=== PATIENT | male | born 1970 | race Caucasian/White ===

== ENCOUNTER 2017-09-20 08:32 | Emergency (ER) | payer OTHER ==
--- NOTE | 2017-09-20 08:36 | EDPHY ---
H & P Time Seen by Provider: 09/20/17 08:33 Constitutional: Initial Vital Signs Heart Rate 79 09/20/17 08:35 Respiratory Rate 20 09/20/17 08:35 Blood Pressure 175/114 H 09/20/17 08:35 O2 Sat (%) 99 09/20/17 08:35 O2 Delivery Mode Room Air Allergies/Adverse Reactions: bee venom protein (honey bee) Allergy (Verified 09/20/17 09:12) Home Medications: Medication Instructions Recorded Bp Med 09/20/17 EPINEPHrine [Epipen 0.3 MG (RX)] 0.3 mg IM ONCE #2 syr 09/20/17 Ranitidine HCl [Zantac 75] 150 mg PO DAILY #14 tablet 09/20/17 Valsartan-Hctz 160-12.5 mg Tab 09/20/17 predniSONE 40 mg PO DAILY #10 tab 09/20/17 Medical Decision Making ED Course/Re-evaluation: CHIEF COMPLAINT: Allergic reaction, shortness of breath HISTORY OF PRESENT ILLNESS: The patient is a 47 y/o male complaining of an allergic reaction and shortness of breath, onset this morning. At 04:00 he woke up with head and chest congestion, so he took Sudafed and went back to sleep. When he woke up he had mild itching and tingling of his lips. He ate a bagel and drank coffee from [employer], which he has every morning. Currently he has a tight chest when breathing, as he feels like something is on his chest. Denies taking an Hay inhibitor. Takes Valsartan. No headache, cough, chills, fever, abdominal pain, urinary or bowel complaints, numbness. REVIEW OF SYSTEMS: A 10 point review of systems was performed and is negative with the exception of the elements mentioned in the history of present illness. PHYSICAL EXAM: HR, BP, O2 Sat, RR. Temp noted General Appearance: Diaphoretic, alert, well hydrated, appropriate, and non- toxic appearing. Head: Atraumatic without scalp tenderness or obvious injury Eyes: Pupils equal, round, reactive to light and accommodation, EOMI, no trauma , no injection. Ears: Clear bilaterally, no perforation, normal landmarks Nose: Atraumatic, no rhinorrhea, clear. Throat: Uvula midline and swollen, posterior and anterior oropharynx edema, lip and tongue edema. There is no erythema or exudates, no lesions, normal tonsils, mucus membranes moist. Neck: Supple, nontender, no lymphadenopathy. Respiratory: Mild expiratory wheezes. No retractions, no distress, and no accessory muscle use. Cardiovascular: Regular rate and rhythm, no murmurs, rubs, or gallops. Good capillary refill all extremities. Gastrointestinal: Abdomen is soft, nontender, non-distended, no masses, no rebound, no guarding, no peritoneal signs. Musculoskeletal: Normal active ROM of all extremities, atraumatic. Neurological: Alert, appropriate, and interactive. Non-focal neuro. Skin: No rashes, good turgor, no nodules on palpation. Past medical history: Hypertension Past surgical history: Denies Family history: Denies Social history: Friend at bedside DIFFERENTIAL DIAGNOSIS: The differential diagnosis included but was not limited to angioedema, anaphylaxis, anaphylactoid reaction, urticarial reaction, and other infectious causes for skin rash. MEDICAL DECISION MAKING: The patient is a 47 y/o male presenting with an allergic reaction after eating a bagel and coffee this morning. His uvula, tongue, lips, and posterior and anterior oropharynx are currently swollen. He also has mild expiratory wheezing and is diaphoretic. The patient is in true anaphylaxis. BP: 175/114, O2Sats: 97. 0836: 0.3mg IM Epinephrine administered. 0838: 125mg IV Solu-Medrol, 75mg IV Benadryl, 50mg IV Zantac, and DuoNeb administered. 0846: Reassessed patient, he is feeling better after medication. 0954: Reassessed patient, he continues to improve. I have prescribed him Prednisone, Zantac, and an EpiPen. I have also advised him to follow up with an school patrol. Return precautions provided; patient is comfortable with this plan. - Data Points Medications Given: Discontinued Medications Albuterol (Proventil Neb) 3 ml IH EDNOW ONE Stop: 09/20/17 08:56 Last Admin: 09/20/17 08:57 Dose: 3 ml Albuterol/Ipratropium (Duoneb) 3 ml IH EDNOW ONE Stop: 09/20/17 08:38 Last Admin: 09/20/17 08:57 Dose: Not Given Diphenhydramine HCl (Benadryl Injection) 75 mg IVP EDNOW ONE Stop: 09/20/17 08:38 Last Admin: 09/20/17 08:37 Dose: 75 mg Epinephrine HCl (Epinephrine) 0.3 mg IM EDNOW ONE Stop: 09/20/17 08:38 Last Admin: 09/20/17 08:36 Dose: 0.3 mg Methylprednisolone Sodium Succinate (Solu-Medrol) 125 mg IVP EDNOW ONE Stop: 09/20/17 08:38 Last Admin: 09/20/17 08:38 Dose: 125 mg Ranitidine HCl (Zantac) 50 mg IVP EDNOW ONE Stop: 09/20/17 08:38 Last Admin: 09/20/17 08:52 Dose: 50 mg Departure - Departure Disposition: Home, Routine, Self-Care Clinical Impression: Allergic reaction Qualifiers: Encounter type: initial encounter Qualified Code(s): T78.40XA - Allergy, unspecified, initial encounter Acute anaphylaxis Qualifiers: Encounter type: initial encounter Qualified Code(s): T78.2XXA - Anaphylactic shock, unspecified, initial encounter Condition: Good Instructions: Food Allergy (ED), Anaphylaxis (ED), General Allergic Reaction ( ED), Allergy Testing (ED) Additional Instructions: 1. Take Prednisone as prescribed. 2. Take Zantac as prescribed. 3. Follow-up with your primary doctor within 72 hours. 4. Use [id number] Benadryl as directed for itching. 5. Return to the Emergency Department for shortness of breath, difficulty swallowing, difficulty breathing, worsening of rash, fever or other worsening of condition. 6. When symptoms have completely subsided, follow up with an school patrol soon as possible to determine the cause of the allergic reaction. 7. Use EpiPen in case of allergic emergency. Referrals: HARVINDER DENISE [Other] - As per Instructions Tommy Taylor MD [Medical Doctor] - As per Instructions Prescriptions: EPINEPHrine [Epipen 0.3 MG (RX)] 0.3 mg IM ONCE #2 syr predniSONE 40 mg PO DAILY #10 tab Ranitidine HCl [Zantac 75] 150 mg PO DAILY #14 tablet Report Scribed for: Zohaib Naranjo Report Scribed by: Alicja Osman Date of Report: 09/20/17 Time of Report: 08:34
[2017-09-20] MEDS ORDERED: RANITIDINE 50 MG/2 ML VIAL IVP ONE (08:37)
[2017-09-20] MEDS ORDERED: IPRATROPIUM/ALBUTEROL 3 ML DEYVIAL IH ONE (08:37)
[2017-09-20] MEDS ORDERED: methylPREDNISolone SOD SUCC 125 MG/2 ML VIAL IVP ONE (08:37)
[2017-09-20] MEDS ORDERED: ALBUTEROL 3 ML DEYVIAL IH ONE (08:55)
[2017-09-20 09:01] VITALS: RESP 16
[2017-09-20 10:05] VITALS: BP 148/93; PULSE 76; TEMP 98.1; O2SAT 98
[2017-09-20] MEDS ORDERED: ALBUTEROL 3 ML DEYVIAL ONE (14:23)
[2017-09-20] MEDS ORDERED: RANITIDINE 50 MG/2 ML VIAL ONE (14:23)
[2017-09-20] MEDS ORDERED: methylPREDNISolone SOD SUCC 125 MG/2 ML VIAL ONE (14:23)
== END 2017-09-20 10:04 | disposition home or self-care (01) ==
DX: T78.2XXA Anaphylactic shock, unspecified, initial encounter (principal); I10 Essential (primary) hypertension
CPT/HCPCS: 96374; J0171; J1200; J2780; J2930; J7613